=== PATIENT | female | born 1995 | race Caucasian/White ===

== ENCOUNTER 2017-05-31 17:32 | Emergency (ER) | payer OTHER ==
[~2017-05-31] VITALS: Ht 165.1 cm; Wt 65.4 kg
[~2017-05-31 17:32] MED LIST: ESG PO
[2017-05-31 21:30] VITALS: BP 113/56
== END 2017-05-31 21:30 | disposition home or self-care (01) ==
LOC: ED 17:32
DX: G43.909 Migraine, unspecified, not intractable, without status migrainosus (principal)
CPT/HCPCS: J0780; J1200; J1885; J2270; J2405

== ENCOUNTER 2019-06-03 17:29 | Inpatient (IN) | payer OTHER ==
[~2019-06-03] VITALS: Ht 165.1 cm; Wt 59.9 kg
[2019-06-03 17:34] VITALS: Ht 165.1 cm; Wt 59.9 kg
--- NOTE | 2019-06-03 17:39 | NUR ---
PT ASSISTED TO ASSIGNED BED VIA WHEELCHAIR DUE TO PAIN.
--- NOTE | 2019-06-03 17:40 | NUR ---
RECEIVED PATIENT FROM TRIAGE, PATIENT TAKEN TO ROOM 9 VIA WHEELCHAIR. PATIENT C/O LOW ABD PAIN SINCE YESTERDAY, STATES "I CAN'T EVEN STAND BECAUSE OF TOO MUCH PAIN. I TOOK MOTRIN TODAY." PATIENT IS AAO X 4 (NAME, DATE, TIME AND CONDITION). EYES - DEZ. MUCUS - PINK. LUNGS - CTA. BS PRESENT X 4 QUADRANTS. B/L UPPER AND LOWER EXT PULSES PALPABLE. WILL CONTINUE TO MONITOR//APR RN
[2019-06-03 18:08] LABS: PLATELET COUNT 339 x10^3mcL (130-400); RED CELL DISTRIBUTION WIDTH 14.1 % (11.5-14.5)
[2019-06-03 18:19] LABS: CALCIUM 8.5 mg/dL (8.5-10.1); CARBON DIOXIDE 23.7 mmol/L (21-32); CHLORIDE SERUM 102 mmol/L (98-107); CREATININE SERUM 0.8 mg/dL (0.6-1.0); GFR1 > 60 mL/min; GLUCOSE SERUM 106 mg/dL (74-106); POTASSIUM SERUM 3.5 mmol/L (3.5-5.1); SODIUM SERUM 139 mmol/L (136-145)
[2019-06-03 18:24] LABS: ALBUMIN 3.8 g/dL (3.4-5.0); ALKALINE PHOSPHATASE 77 U/L (46-116); ALT/SGPT 15 U/L (14-59); AST/SGOT 12 U/L (15-37); BILIRUBIN TOTAL 0.6 mg/dL (0.20-1.00); TOTAL PROTEIN, SERUM 8.4 g/dL (6.4-8.2)
--- NOTE | 2019-06-03 18:27 | NUR ---
RECEIVED D/C ORDER FROM DR VALDES. D/C INSTRUCTIONS AND LAB/RAD RESULTS GIVEN AND EXPLAINED TO PATIENT. ADVISED PATIENT TO FOLLOW UP WITH PMD WITHIN 2-3 DAYS OR RETURN TO ED IF NEEDED/WORSE. D/C ID BAND. PATIENT VERBALIZED UNDERSTANDING, NO QUESTIONS AT THIS TIME./APR RN
[2019-06-03 18:30] LABS: BAND NEUTROPHIL 0 % (0-10); BASOPHIL 0 % (0-2); MONOCYTE 6 % (0-7); SEGMENTED NEUTROPHILS 82 % (37-75); rbc morphology (normal/abnorm) NORMAL (NORMAL)
--- NOTE | 2019-06-03 19:17 | NUR ---
REPORT GIVEN TO FELTON MYRICK FOR [facility].//APR RN
--- NOTE | 2019-06-03 20:03 | NUR ---
PT MEDICATED PER ORDER. PT VERBALIZED UNDERSTANDING OF MEDICATION TEACHING. SEE EMAR FOR DETAILS.
--- NOTE | 2019-06-03 22:04 | NUR ---
SPOKE W/DR. CORONA FOR ADMISSION ORDERS.
--- NOTE | 2019-06-03 23:30 | NUR ---
PT TAKEN TO MED SURG FLOOR ACCOMPANIED BY EMT. NO S/S OF DISTRESS. RESP E/U. MOTHER ACCOMPANYING PT. IV SITE PATENT, NO S/S OF INFILTRATION.
[2019-06-03 23:37] VITALS: BP 98/54
--- NOTE | 2019-06-03 23:44 | NUR ---
RECEIVED PT FROM ER, PT ADMIT FOR ABD PAIN, LOWR RIGHT OVARIAN CYST, LEUKOCYTOSIS, PT IS A/O X4, VERBAL RESPONSIVE, LUNG SOUND CLEAR BILATERAL, NO COUGH, NO SOB, PT DENY ANY CHEST PAIN OR DISCOMFORT, BOWEL SOUND PRESENT ALL 4 QUADRANTS, NO DISTENTION, NO TENDER. BUT PT C/O RIGHT LOWER PAIN 7/10 AT THIS MOMENT, PEDAL PULSE PRESENT BOTH FEET, NO EDEMA, IV AT RIGHT AC, NO LEAKING, NO INFILTRATION. ALL ADLS ASSIST, ALL NEED MET, CALL LIGHT IN REACH, WILL CONTINUET TO MONITOR.
--- NOTE | 2019-06-03 23:58 | NUR ---
REC'D PT FROM KAMALJIT YA. PT RESTING IN BED. AAOX4, SPEECH CLEAR, FOLLOWS COMMANDS. MED SURG, NO TELE. DENIES CP, DIZZINESS, OR PALPITATIONS. ADM FOR SEVERE ABD PAIN. CURRENTLY C/O STABBING 7/10 LOWER ABD PAIN. TOLERABLE AT THIS TIME. PT DENIED PAIN MEDS. LOW GRADE FEVER, COOLING MEASURES INITIATED. VOIDING FREELY. DENIES DYSURIA BUT REPORTS IT BEING "SORE" WHEN SHE URINATED. AMBULATORY. SKIN INTACT. DENIES VAGINAL ITCHING, DISCHARGE, OR BLEEDING. IV TO RAC FLUSHED AND PATENT, SITE WNL. ORIENTED TO DEVICES AND SURROUNDINGS. CALL LIGHT WITHIN REACH, BED AT LOWEST POSITION. WILL CONTINUE TO MONITOR.
--- NOTE | 2019-06-04 00:31 | NUR ---
DR. CORONA REPAGED
--- NOTE | 2019-06-04 00:39 | NUR ---
REC'D CALL BACK FROM DR. CORONA. MADE AWARE OF NO CONTINUED ABX WITH WBC 21.3. REC'D ORDERS FOR FLAGYL 500 MG IVPB Q8, LEVAQUIN 500 MG IVPB DAILY, UA AND CULTURE, AND IVF TO START NOW AND NOT IN AM.
--- NOTE | 2019-06-04 02:03 | NUR ---
PT RESTING IN BED WITH EYES CLOSED. NO S/SX OF PAIN NOTED. BREATHING EVEN/UNLABORED ON RA. CALL LIGHT WITHIN REACH, BED AT LOWEST POSITION. WILL CONTINUE TO MONITOR.
[2019-06-04 04:53] VITALS: BP 86/52
--- NOTE | 2019-06-04 04:57 | NUR ---
PT AWAKE AND C/O 8/10 LOWER ABD PAIN, STABBING. NORCO GIVEN PER ORDER. BP 86/52, MAP 63, HR 74. ASYMPTOMATIC. DENIES ANY DIZZINESS OR LIGHTHEADEDNESS. AFEBRILE. DR. CORONA PAGED.
--- NOTE | 2019-06-04 05:58 | NUR ---
REC'D CALL BACK FROM DR. CORONA. MADE AWARE OF CURRENT BP 86/52, MAP 63, HR 74. ASYMPTOMATIC. REC'D ORDER FOR 1L NS BOLUS NOW.
--- NOTE | 2019-06-04 07:35 | NUR ---
RECEIVED PATIENT RESTING IN BED, NO ACUTE DISTRESS NOTED. PATIENT C/O LOWER ABDOMINAL PAIN 02/23. PATIENT STATES PAIN INCREASES WITH ABDOMINAL MOVEMENT. PATIENT DENIES SOB, ON ROOM AIR, LUNG SOUNDS CTA. 1L BOLUS INFUSING TO RIGHT AC, IV SITE CDI & PATENT, NO S/S OF INFILTRATION. CALL LIGHT WITHIN REACH, BED IN LOW POSITION, WILL CONTINUE TO MONITOR FOR CHANGES,
[2019-06-04 07:52] LABS: UA SPECIFIC GRAVITY 1.015 (1.005-1.035); microscopic required? YES; urine erythrocyte 1+ (NEGATIVE)
[2019-06-04 08:22] VITALS: BP 97/43
--- NOTE | 2019-06-04 08:31 | NUR ---
PATIENT BP AFTER 1L BOLUS WAS 95/55 HR 82.
--- NOTE | 2019-06-04 09:07 | NUR ---
PATIENT WAS C/O OF MID LOWER ABDOMINAL PAIN, MEDICATED PATIENT WITH NORCO PER PROTOCOL (SEE EMAR), CALL LIGHT WITHIN REACH. WILL CONTINUE TO MONITOR AND MANAGE PAIN.
--- NOTE | 2019-06-04 12:29 | NUR ---
DR. MODI AT BEDSIDE FOR PELVIC EXAM.
[2019-06-04 13:31] LABS: BASOPHIL % 0.2 % (0-2); PLATELET COUNT 275 x10^3mcL (130-400); RED CELL DISTRIBUTION WIDTH 14.2 % (11.5-14.5)
--- NOTE | 2019-06-04 13:59 | NUR ---
PATIENT WAS C/O MODERATE PAIN 12/24 TO LOWER ABDOMEN, PT STATES PAIN INCREASES WITH MOVEMENT. MEDICATED PATIENT WITH NORCO PO PER PROTOCOL (SEE EMAR). CALL LIGHT WITHIN REACH, BED IN LOW POSITION, WILL CONTINUE TO MONITOR.
--- NOTE | 2019-06-04 14:45 | NUR ---
DR WATSON GAVE TORB TO D/C DOXYCYCLINE & FLAGYL, AND GAVE TORB FOR ZOSYN 3.375 GM IV Q6H.
--- NOTE | 2019-06-04 15:50 | NUR ---
PATIENTS TEMP WAS 100.9, COOLING MEASURE APPLIED. MEDICATED PATIENT WITH TYLENOL PO PER PROTOCOL FOR TEMP. WILL CONTINUE TO MONITOR PATIENT TEMP.
--- NOTE | 2019-06-04 17:00 | NUR ---
PATIENT TEMP DECREASED TO 99.4, COOLING MEASURES IN PLACE. PATIENT DENIES PAIN. NO ACUTE DISTRESS NOTED, PATIENT DENIES SOB. D5 1/2NS INFUSING TO RIGHT AC AT 80ML/HR, IV SITE CDI& PATENT, NO S/S OF INFILTRATION. CALL LIGHT WITHIN REACH, BED IN LOW POSITION, WILL CONTINUE TO MONITOR PATIENT.
[2019-06-04 17:08] VITALS: BP 102/59
--- NOTE | 2019-06-04 19:30 | NUR ---
REC'D PT FROM DAY NURSE. FAMILY AT BEDSIDE. PT RESTING IN BED. AAOX4, SPEECH CLEAR, FOLLOWS COMMANDS. MED SURG, NO TELE. DENIES CP, DIZZINESS, OR PALPITATIONS. DENIES RESP DISTRESS OR SOB. BREATHING EVEN/UNLABORED ON RA. NO EDEMA NOTED. C/O 02/23 MID TO R LOWER ABD PAIN, STABBING. TOLERABLE AT THIS TIME AND DECLINED PAIN MEDS. VOIDING FREELY. AMBULATORY. SKIN INTACT. IV TO RAC PATENT AND INFUSING, SITE WNL. PT REQUESTING FOOD. STATED SHE HAS NOT EATEN SINCE YESTERDAY. PT NPO FOR PENDING SURGICAL CONSULT. WILL PAGE DR. WATSON.
--- NOTE | 2019-06-04 19:40 | NUR ---
REC'D CALL BACK FROM DR. WATSON. INQUIRED IF PT IS ABLE TO EAT DINNER AND THEN BE NPO AFTER MN. STATED TO CALL DR. RUBIO AND ASK ABOUT DIET. DR. RUBIO PAGED
--- NOTE | 2019-06-04 20:11 | NUR ---
DR. RUBIO AT BEDSIDE TO ASSESS THE PT
[2019-06-04 20:28] VITALS: BP 109/68
--- NOTE | 2019-06-04 20:40 | NUR ---
PLAN FOR LAP APPE TONIGHT. PREPARING PT FOR SX. CHG WIPES GIVEN. CHECKLIST COMPLETED. SURGICAL CONSENT SIGNED. ALL QUESTIONS AND CONCERNS ADDRESSED.
--- NOTE | 2019-06-04 22:03 | NUR ---
PT C/O SEVERE BLQ PAIN 10/10, STABBING. DILAUDID GIVEN PER ORDER. WILL MONITOR FOR RELIEF. STILL WAITING FOR SURGERY. NO CONFIRMED TIME YET. PT REMAINS NPO.
--- NOTE | 2019-06-04 22:40 | NUR ---
PT TAKEN DOWN TO OR VIA GURJARROD ACCOMPANIED BY RN AND SISTER.
[2019-06-05] VITALS (7 sets, daily range): BP systolic 96–106; BP diastolic 53–69
--- NOTE | 2019-06-05 00:52 | NUR ---
PT TRANSFERRED TO TELE. REPORT GIVEN TO CHANDAN YA.
--- NOTE | 2019-06-05 01:00 | NUR ---
PT RECIEVED FROM KEVYN YA. PT A/O AT THIS TIME. BREATHING E/U ON 2L NC, SPO2 99%. NO SIGNS OF ACUTE DISTRESS NOTED AT THIS TIME. BED AT LOWEST POSITION. CALL LIGHT WTIHIN REACH. WILL CONTINUE TO MONITOR.
--- NOTE | 2019-06-05 01:50 | NUR ---
PT COMPLAINING OF 8/10 ABD PAIN. MEDICATED WTIH PRN DILAUDID. WILL CONTINUE TO MONITOR.
--- NOTE | 2019-06-05 03:36 | NUR ---
PT COMPLAINING OF 6/10 PAIN AT SURGICAL SITE. MEDICATED WTIH PRN MORPHINE. WILL CONTINUE TO MONITOR.
--- NOTE | 2019-06-05 06:00 | NUR ---
PT COMPLAINAING OF 8/10 PAIN. BP 93/57 AT THIS TIME. MEDICATED WTIH PRN NORCO. WILL CONTINUE TO MONITOR.
--- NOTE | 2019-06-05 06:58 | NUR ---
RECEIVED PT FROM BINDER SELECTOR NURSE. PT IN BED SLEEPING, AROUSABLE, RESP E/U ON RA. NO ACUTE DISTRESS NOTED. ON TELE 4 SHOWING NSR, HR: 68. IV TO RAC W/ NO SIGNS OF INFILTRATION. IVF INFUSING WELL. BED IN LOWEST POSITION AND CALL LIGHT WITHIN REACH. WILL CONTINUE TO MONITOR.
[2019-06-05 07:19] LABS: PLATELET COUNT 260 x10^3mcL (130-400); RED CELL DISTRIBUTION WIDTH 14.3 % (11.5-14.5)
[2019-06-05 08:07] LABS: BAND NEUTROPHIL 3 % (0-10); BASOPHIL 0 % (0-2); MONOCYTE 2 % (0-7); PLATELET MORPHOLOGY PLATELETS NORMAL; SEGMENTED NEUTROPHILS 95 % (37-75); rbc morphology (normal/abnorm) ABNORMAL (NORMAL)
[2019-06-05 08:09] LABS: ERYTHROCYTE SED RATE 58 mm/hr (0-20)
--- NOTE | 2019-06-05 12:05 | NUR ---
PT RESTING IN BED, AOX4, RESP E/U ON RA. C/O ABD PAIN 7/10 TO SURGICAL SITE, TOLERABLE TO PT, NO REQUEST FOR PAIN MEDS. BANDAIDS X3 TO SURGICAL SITES CDI. BED IN LOWEST POSITION AND CALL LIGHT WITHIN REACH. WILL CONTINUE TO MONITOR.
--- NOTE | 2019-06-05 18:01 | NUR ---
PT RESTING IN BED, AOX4, RESP E/U ON RA. REPORTED PAIN TO ABD SURGICAL SITES BUT TOLERABLE, NO REQUEST FOR PAIN MED. DRESSING CDI. IV TO RAC W/ NO SIGNS OF INFILTRATION, IVF INFUSING WELL. BED IN LOWEST POSTIION AND CALL LIGTH WITHIN REACH. WILL ENDORSE TO ONCOMING NURSE.
--- NOTE | 2019-06-05 19:26 | NUR ---
RECEIVED PT FROM PREVIOUS SHIFT. PT A/OX4. DENIES SOB ON RA. C/O "TOLERABLE" 11/23 PAIN TO ABD. BANDAIDS X3 TO ABD, CDI. IV PATENT. CALL LIGHT WITHIN REACH, BED IN LOW POSITION. FAMILY AT BEDSIDE. WILL CONTINUE TO MONITOR.
--- NOTE | 2019-06-05 21:21 | NUR ---
PT C/O 5/10 PAIN TO ABD S/P LAP APPY. [place] PROVIDED PRN PER EMAR. WILL CONTINUE TO MONITOR.
--- NOTE | 2019-06-05 22:50 | NUR ---
PT C/O 10/10 SHARP, STABBING PAIN TO RLQ. DILAUDID PROVIDED PRN PER EMAR. WILL CONTINUE TO MONITOR.
--- NOTE | 2019-06-05 23:45 | NUR ---
PT RESTING IN NO ACUTE DISTRESS. RR EVEN AND UNLABORED. CALL LIGHT WITHIN REACH, BED IN LOW POSITION. WILL CONTINUE TO MONITOR.
[2019-06-06 04:48] VITALS: BP 92/58
[2019-06-06 06:39] LABS: BASOPHIL % 0.1 % (0-2); PLATELET COUNT 309 x10^3mcL (130-400); RED CELL DISTRIBUTION WIDTH 14.1 % (11.5-14.5)
[2019-06-06 06:50] LABS: ALKALINE PHOSPHATASE 58 U/L (46-116); ALT/SGPT 14 U/L (14-59); AST/SGOT 17 U/L (15-37); BILIRUBIN DIRECT 0.09 mg/dL (0.0-0.2); BILIRUBIN TOTAL 0.3 mg/dL (0.20-1.00); CARBON DIOXIDE 27.5 mmol/L (21-32); CHLORIDE SERUM 106 mmol/L (98-107); CREATININE SERUM 0.6 mg/dL (0.6-1.0); GFR1 > 60 mL/min; GLUCOSE SERUM 99 mg/dL (74-106); POTASSIUM SERUM 3.4 mmol/L (3.5-5.1); SODIUM SERUM 143 mmol/L (136-145); TOTAL PROTEIN, SERUM 6.3 g/dL (6.4-8.2)
--- NOTE | 2019-06-06 06:59 | NUR ---
RECEIVED PT FROM SILVER CHASER NURSE. PT RESTING IN BED, AOX4, RESP E/U ON 2L NC. REPORTS MILD PAIN TO ABD BUT TOLERABLE AT THIS TIME, NO ACUTE DISTRESS NOTED. BANDAIDS X3 TO ABD CDI. ON TELE 4 SHOWING NSR, HR: 65. IV TO RAC W/ NO SIGNS OF INFILTRATION, IVF INFUSING WELL. BED IN LOWEST POSITION AND CALL LIGHT WITHIN REACH. WILL CONTINUE TO MONITOR.
[2019-06-06 07:30] LABS: ALBUMIN 2.4 g/dL (3.4-5.0)
[2019-06-06 07:59] VITALS: BP 103/61
--- NOTE | 2019-06-06 12:05 | NUR ---
PT IN BED SLEEPING, AROUSABLE, RESP E/U ON RA. NO ACUTE DISTRESS NOTED. BED IN LOWEST POSITION AND CALL LIGHT WITHIN REACH. WILL CONTINUE TO MONITOR.
[2019-06-06 12:16] VITALS: BP 101/57
[2019-06-06 16:50] VITALS: BP 115/66
--- NOTE | 2019-06-06 18:01 | NUR ---
PT IN BED SLEEPING, AROUSABLE, RESP E/U ON RA. NO ACUTE DISTRESS NOTED. IV TO RAC W/ NO SIGNS OF INFILTRATION, IVF INFUSING WELL. BED IN LOWEST POSITION AND CALL LIGHT WITHIN REACH. WILL ENDORSE TO ONCOMING NURSE.
[2019-06-06 19:23] VITALS: BP 111/65
--- NOTE | 2019-06-06 19:24 | NUR ---
RECEIVED PT FROM PREVIOUS SHIFT. PT A/OX4. DENIES SOB ON RA. IV LEAKING. INFUSION STOPPED AT THIS TIME. CALL LIGHT WITHIN REACH, BED IN LOW POSITION. FAMILY AT BEDSIDE. WILL CONTINUE TO MONITOR.
--- NOTE | 2019-06-06 20:08 | NUR ---
NEW IV PLACED TO RFA. IV INFUSION RESUMED WITH NO S/S OF INFILTRATION
--- NOTE | 2019-06-07 00:25 | NUR ---
PT RESTING IN NO ACUTE DISTRESS. RR EVEN AND UNLABORED. IV PATENT AND INFUSING WELL WITH NO S/S OF INFILTRATION. CALL LIGHT WITHIN REACH, BED IN LOW POSITION. WILL CONTINUE TO MONITOR.
[2019-06-07 04:43] VITALS: BP 102/70
--- NOTE | 2019-06-07 07:08 | NUR ---
RECEIVED PT FROM CABLE WIRER NURSE. PT RESTING IN BED, AOX4, RESP E/U ON RA. REPORTED MILD PAIN BUT TOLERABLE, DENIES N/V. BANDAIDS TO ABD X3 OVER SURGICAL INCSIONS CDI. ON TELE 4 SHOWING NSR, HR: 71. IV TO RAC, W/ NO SIGNS OF INFILTRATION, IVF INFUSING WELL. BED IN LOWEST POSITION AND CALL LIGHT WITHIN REACH. WILL CONTINUE TO MONITOR.
[2019-06-07 07:11] LABS: CALCIUM 7.7 mg/dL (8.5-10.1); CARBON DIOXIDE 28.4 mmol/L (21-32); CHLORIDE SERUM 105 mmol/L (98-107); CREATININE SERUM 0.6 mg/dL (0.6-1.0); GFR1 > 60 mL/min; GLUCOSE SERUM 103 mg/dL (74-106); MAGNESIUM 1.9 mg/dL (1.8-2.4); POTASSIUM SERUM 3.4 mmol/L (3.5-5.1); SODIUM SERUM 142 mmol/L (136-145)
[2019-06-07 07:50] LABS: BASOPHIL % 0.6 % (0-2); PLATELET COUNT 359 x10^3mcL (130-400); RED CELL DISTRIBUTION WIDTH 13.8 % (11.5-14.5)
[2019-06-07 09:00] VITALS: BP 109/72
[2019-06-07 12:02] VITALS: BP 103/63
--- NOTE | 2019-06-07 12:05 | NUR ---
PT RESTING IN BED, AXO4, RESP E/U ON RA. DENIES ABD PAIN OR N/V AT THIS TIME, NO ACUTE DISTRESS NOTED. BED IN LOWEST POSITION AND CALL LIGHT WITHIN REACH. FAMILY AT BEDSIDE. WILL CONTINUE TO MONITOR.
[2019-06-07] MEDS ORDERED: ACETAMINOPHEN-H1 TA1 PO (12:55)
[2019-06-07] MEDS ORDERED: LIALDA1.2 GM PO (12:59)
[2019-06-07] MEDS ORDERED: LEVAQUIN500 M1 PO (12:59)
[2019-06-07] MEDS ORDERED: FLA250 PO (12:59)
[2019-06-07] MEDS ORDERED: KETOROLAC TROME10 MG PO (13:00)
[2019-06-07 17:10] VITALS: BP 119/55
--- NOTE | 2019-06-07 17:12 | NUR ---
PT DISCHARGED. REVIEWED VISIT SUMMARY, EDUCATIONAL PACKET, FOLLOW UP INSTRUCTIONS AND NEW RX MEDS. PT AOX4, RESP E/U ON RA, VS STABLE, DENIES ABD PAIN, DRESSING TO SURGICAL INCISIONS X3 CDI. IV TO RAC REMOVED, CATH INTACT, GAUZE DRESSING APPLIED. PT ESCORTED TO LOBBY VIA WHEELCHAIR BY FAMILY AND DIFFERENTIAL TESTER MOSHE W/ NO ACUTE INCIDENCE.
[2019-06-10 14:07] LABS: cnab c-anca <1:20 titer (Neg:<1:20); cnab p-anca <1:20 titer (Neg:<1:20)
== END 2019-06-07 17:20 | disposition home or self-care (01) | DRG 853 ==
LOC: ED 17:29 → MU 22:02 → DU 22:02 → MU 22:02 → DU 06-05 08:34
PROVIDERS: Internal Medicine; Internal Medicine Pulmonary Disease; Surgery; ADMIT Internal Medicine Pulmonary Disease
PROC: 0DTJ4ZZ Resection of Appendix, Percutaneous Endoscopic Approach (ICD-10-PCS; principal; 2019-06-05)
PROC: 0W9G0ZZ Drainage of Peritoneal Cavity, Open Approach (ICD-10-PCS; 2019-06-05)
PROC: 3E1M38Z Irrigation of Peritoneal Cavity using Irrigating Substance, Percutaneous Approach (ICD-10-PCS; 2019-06-05)
DX: A41.9 Sepsis, unspecified organism (principal); K35.33 Acute appendicitis with perforation, localized peritonitis, and gangrene, with abscess; K50.00 Crohn's disease of small intestine without complications; N83.201 Unspecified ovarian cyst, right side
CPT/HCPCS: 83520; 86256; 87491; 87591; G0378; J0330; J1170; J1956; J2270; J2405; J2543; J2704; J2710; J3010; J3490; J7030; J7120; Q0092; Q9967